=== PATIENT | female | born 1960 | race Caucasian/White ===

== ENCOUNTER 2020-09-15 10:36 | Outpatient (CLI) | payer OTHER | END 2020-09-15 10:37 | disposition home or self-care (01) | LOC: CSHMAMMO 10:36 | PROVIDERS: ATTEND Family Medicine | DX: Z12.31 Encounter for screening mammogram for malignant neoplasm of breast (principal) | CPT/HCPCS: 77063; 77067 ==

== ENCOUNTER 2021-03-31 10:59 | Outpatient (CLI) | payer OTHER | END 2021-03-31 11:00 | disposition home or self-care (01) | LOC: CSHLAB 10:59 | PROVIDERS: ATTEND Obstetrics & Gynecology | DX: Z01.812 Encounter for preprocedural laboratory examination (principal); Z20.822 Contact with and (suspected) exposure to COVID-19; L92.9 Granulomatous disorder of the skin and subcutaneous tissue, unspecified; Z53.9 Procedure and treatment not carried out, unspecified reason | CPT/HCPCS: 80048; 85027; 86850; 86900; 86901; U0003; U0005 ==

== ENCOUNTER 2021-04-05 10:54 | Day surgery (SDC) | payer OTHER ==
[2021-03-31 12:07] LABS: Hemoglobin 9.8 g/dL (12.0-15.5); Mean Corpuscular HGB CONC 33.9 g/dL (32.0-36.0); Mean Corpuscular Hemoglobin 29.1 pg (27.0-33.0); Mean Corpuscular Volume 85.8 fl (81.6-98.3); Mean Platelet Volume 9.7 fl (7.4-10.4); Platelet Count 124 10x3/uL (150-450); RBC Distribution Width 16.7 % (11.5-14.5); Red Blood Cell (RBC) Count 3.37 10x6/uL (3.90-5.03); White Blood Cell (WBC) Count 5.3 10x3/uL (3.5-10.5)
[2021-03-31 12:10] LABS: Anion Gap 14 mmol/L (10-20); BUN (Urea Nitrogen) 32 mg/dL (9.8-20.1); Calc. Creatinine Clearance 0 mL/min (70-130); Calcium 8.8 mg/dL (7.8-10.44); Carbon Dioxide 23 mmol/L (22-29); Chloride 106 mmol/L (98-107); Glucose 152 mg/dL (70-105); Potassium 3.9 mmol/L (3.5-5.1); Sodium 139 mmol/L (136-145)
[2021-04-01 00:36] LABS: SARS-CoV-2 PCR by NAA Not Detected (NotDetected)
[2021-04-03 15:01] VITALS: BMI 20.9
[2021-04-05] MEDS ORDERED: Lidocaine 1% MPF 2 ML VIAL ONE (11:06)
[2021-04-05] MEDS ORDERED: PROPOFOL 20 ML ONE (11:58)
[2021-04-05] MEDS ORDERED: Ferric Subsulfate (ASTRINGYN) 8 GM VIAL ONE (11:59)
[2021-04-05] MEDS ORDERED: Fentanyl 100 MCG/2 ML VIAL ONE (11:59)
[2021-04-05] MEDS ORDERED: Lidocaine 1% PF 5 ML VIAL ONE (11:59)
[2021-04-05] MEDS ORDERED: PHENYLEPHRINE-NS 100 MCG/ML 10 ML SYRINGE ONE (12:14)
== END 2021-04-05 13:30 | disposition home or self-care (01) ==
LOC: CSHSDC 10:54
PROVIDERS: ATTEND Obstetrics & Gynecology
PROC: 0UCGXZZ Extirpation of Matter from Vagina, External Approach (ICD-10-PCS; principal; 2021-04-05)
DX: T19.2XXA Foreign body in vulva and vagina, initial encounter (principal); N95.0 Postmenopausal bleeding; N89.8 Other specified noninflammatory disorders of vagina; I13.0 Hypertensive heart and chronic kidney disease with heart failure and stage 1 through stage 4 chronic kidney disease, or unspecified chronic kidney disease; E11.22 Type 2 diabetes mellitus with diabetic chronic kidney disease; N18.30 Chronic kidney disease, stage 3 unspecified; I50.20 Unspecified systolic (congestive) heart failure; I25.10 Atherosclerotic heart disease of native coronary artery without angina pectoris; F17.210 Nicotine dependence, cigarettes, uncomplicated; I25.5 Ischemic cardiomyopathy; E78.5 Hyperlipidemia, unspecified; Z88.1 Allergy status to other antibiotic agents; Z79.890 Hormone replacement therapy; Z79.82 Long term (current) use of aspirin; Z79.899 Other long term (current) drug therapy; Z95.1 Presence of aortocoronary bypass graft; Z95.5 Presence of coronary angioplasty implant and graft; Z90.710 Acquired absence of both cervix and uterus; Z95.0 Presence of cardiac pacemaker; X58.XXXA Exposure to other specified factors, initial encounter
CPT/HCPCS: 80048; 85027; 86850; 86900; 86901; 88305; J2704; J3010; J3490; U0003; U0005

== ENCOUNTER 2021-12-14 11:51 | Inpatient (IN) | payer OTHER ==
[2021-12-14 12:56] LABS: #Eosinphils 0.1 10x3/uL (0.0-0.5); #Monocytes 0.5 10x3/uL (0.0-1.1); #Neutrophils 3.7 10x3/uL (1.5-8.4); %Basophils 0.4 % (0.0-2.0); %Eosinophils 1.6 % (0.0-6.0); %Lymphocytes 15.7 % (18.0-47.0); %Monocytes 9.8 % (0.0-10.0); %Neutrophils 71.9 % (40.0-75.0); Hemoglobin 7.3 g/dL (12.0-15.5); Mean Corpuscular HGB CONC 30.8 g/dL (32.0-36.0); Mean Corpuscular Hemoglobin 25.5 pg (27.0-33.0); Mean Corpuscular Volume 82.9 fl (81.6-98.3); Mean Platelet Volume 10.2 fl (7.4-10.4); Platelet Count 143 10x3/uL (150-450); RBC Distribution Width 18.5 % (11.5-14.5); Red Blood Cell (RBC) Count 2.86 10x6/uL (3.90-5.03); White Blood Cell (WBC) Count 5.1 10x3/uL (3.5-10.5)
[2021-12-14 13:09] LABS: Bilirubin Neg (Negative); Blood, Urine Negative (Negative); Clarity Clear (Clear); Glucose, Urine (Dipstick) Normal (Negative); Ketone, Urine Negative (Negative); Leukocyte Negative (Negative); Nitrite Negative (Negative); Protein, Urine (Dipstick) 100 mg/dl (Neg-Trace); Urobilinogen Normal mg/dL (Less than 2); pH, Urine 6.5 (5.0-9.0)
[2021-12-14 13:10] LABS: ALT (SGPT) 17 U/L (8-55); AST (SGOT) 13 U/L (5-34); Albumin 3.4 g/dL (3.5-5.0); Alkaline Phosphatase 111 U/L (40-110); Anion Gap 13 mmol/L (10-20); BUN (Urea Nitrogen) 35 mg/dL (9.8-20.1); Bilirubin, Total 0.7 mg/dL (0.2-1.2); Calc. Creatinine Clearance 0 mL/min (70-130); Carbon Dioxide 29 mmol/L (22-29); Chloride 102 mmol/L (98-107); Estimated GFR 18; Globulin 2.6 g/dL (2.4-3.5); Glucose 97 mg/dL (70-105); Lipase 55 U/L (8-78); Potassium 4.2 mmol/L (3.5-5.1); Sodium 140 mmol/L (136-145)
[2021-12-14 13:29] LABS: CKMB 1.2 ng/mL (0-6.6)
[2021-12-14 13:32] LABS: Bacteria/HPF 2+ HPF (None Seen); Mucous/LPF Rare LPF (<2+); RBC/HPF 0-3 HPF (0-3); WBC/HPF 0-3 HPF (0-3)
[2021-12-14] MEDS ORDERED: Aspirin Chewable 81 MG TAB ONE (14:30)
[2021-12-14] MEDS ORDERED: Nitroglycerin 0.4 MG TAB 1 EACH ONE (14:30)
[2021-12-14] MEDS ORDERED: Nitroglycerin 2% Ointment 1 INCH/1 GM Packet ONE (14:31)
[2021-12-14] MEDS ORDERED: Furosemide 40 MG/4 ML VIAL ONE ×2 (14:31)
[2021-12-14 15:53] LABS: Troponin I 0.058 ng/mL (< 0.028)
[2021-12-14 18:56] VITALS: BMI 23.1
[2021-12-14] MEDS ORDERED: Guaifenesin DM 100-10/5 ML UDCUP PO PRN (19:05)
[2021-12-14] MEDS ORDERED: Ondansetron PF 4 MG/2 ML Vial IVP PRN (19:05)
[2021-12-14] MEDS ORDERED: Ondansetron ODT 4 MG TAB PO PRN (19:05)
[2021-12-14] MEDS ORDERED: Acetaminophen 650 MG Suppository PR PRN (19:05)
[2021-12-14 19:14] LABS: Troponin I 0.056 ng/mL (< 0.028)
[2021-12-14] MEDS ORDERED: Insulin Regular 300 UNITS/3 ML VIAL SC PRN (19:18)
[2021-12-14] MEDS ORDERED: Dextrose 50% Abboject 50 ML SYRINGE SLOW IVP PRN (19:18)
[2021-12-14] MEDS ORDERED: Dextrose 5% in Water 1,000 ML IV PRN (19:18)
[2021-12-14] MEDS ORDERED: HumaLOG 300 UNITS/3 ML VIAL SC PRN (19:18)
[2021-12-14] MEDS ORDERED: Bumetanide 1 MG/4 ML VIAL IVP SCH (22:00)
[2021-12-14] MEDS: Heparin 5,000 UNITS/ML VIAL SC SCH (22:33)
[2021-12-15 04:45] LABS: #Eosinphils 0.1 10x3/uL (0.0-0.5); #Monocytes 0.5 10x3/uL (0.0-1.1); %Basophils 0.5 % (0.0-2.0); %Eosinophils 2.2 % (0.0-6.0); %Lymphocytes 14.3 % (18.0-47.0); %Monocytes 9.6 % (0.0-10.0); Anion Gap 13 mmol/L (10-20); BUN (Urea Nitrogen) 37 mg/dL (9.8-20.1); Calc. Creatinine Clearance 22 mL/min (70-130); Calcium 8.7 mg/dL (7.8-10.44); Carbon Dioxide 30 mmol/L (22-29); Chloride 101 mmol/L (98-107); Estimated GFR 18; Glucose 84 mg/dL (70-105); Hemoglobin 7.3 g/dL (12.0-15.5); Magnesium 2.1 mg/dL (1.6-2.6); Mean Corpuscular HGB CONC 30.5 g/dL (32.0-36.0); Mean Corpuscular Hemoglobin 25.5 pg (27.0-33.0); Mean Corpuscular Volume 83.6 fl (81.6-98.3); Mean Platelet Volume 10.9 fl (7.4-10.4); Platelet Count 151 10x3/uL (150-450); Potassium 4.3 mmol/L (3.5-5.1); RBC Distribution Width 18.5 % (11.5-14.5); Red Blood Cell (RBC) Count 2.86 10x6/uL (3.90-5.03); Sodium 140 mmol/L (136-145); White Blood Cell (WBC) Count 5.5 10x3/uL (3.5-10.5)
[2021-12-15] MEDS: Bumetanide 1 MG/4 ML VIAL IVP SCH ×2 (06:52→18:08)
[2021-12-15] MEDS ORDERED: Famotidine/PF 20 mg/2ml Vial SLOW IVP PRN (09:00)
[2021-12-15] MEDS: Aspirin Chewable 81 MG TAB PO SCH (11:33)
[2021-12-15] MEDS: Heparin 5,000 UNITS/ML VIAL SC SCH ×2 (11:33→20:53)
[2021-12-15] MEDS: Famotidine 20 MG TAB PO SCH (11:33)
[2021-12-15] MEDS: hydrALAZINE 25 MG TAB PO SCH ×2 (14:23→20:37)
[2021-12-15] MEDS ORDERED: Isosorbide Dinitrate 20 MG TAB PO SCH (15:00)
[2021-12-15] MEDS: Carvedilol 25 MG TAB PO SCH (20:38)
[2021-12-15] MEDS: Rosuvastatin 20 MG TAB PO SCH (20:38)
[2021-12-15] MEDS: Isosorbide Dinitrate 20 MG TAB PO SCH (20:41)
[2021-12-15] MEDS ORDERED: Melatonin 3 MG TAB PO SCH (23:15)
[2021-12-16] MEDS: Acetaminophen 325 MG TAB PO PRN ×2 (00:15→08:12)
[2021-12-16 05:08] LABS: #Eosinphils 0.1 10x3/uL (0.0-0.5); #Monocytes 0.3 10x3/uL (0.0-1.1); #Neutrophils 3.1 10x3/uL (1.5-8.4); %Basophils 0.5 % (0.0-2.0); %Eosinophils 1.9 % (0.0-6.0); %Lymphocytes 17.4 % (18.0-47.0); %Monocytes 7.9 % (0.0-10.0); %Neutrophils 72.1 % (40.0-75.0); Hemoglobin 6.8 g/dL (12.0-15.5); Mean Corpuscular HGB CONC 30.6 g/dL (32.0-36.0); Mean Corpuscular Hemoglobin 25.5 pg (27.0-33.0); Mean Corpuscular Volume 83.1 fl (81.6-98.3); Mean Platelet Volume 10.7 fl (7.4-10.4); Platelet Count 155 10x3/uL (150-450); RBC Distribution Width 18.3 % (11.5-14.5); Red Blood Cell (RBC) Count 2.67 10x6/uL (3.90-5.03); White Blood Cell (WBC) Count 4.3 10x3/uL (3.5-10.5)
[2021-12-16 05:11] LABS: Anion Gap 14 mmol/L (10-20); BUN (Urea Nitrogen) 33 mg/dL (9.8-20.1); Calc. Creatinine Clearance 21 mL/min (70-130); Calcium 8.4 mg/dL (7.8-10.44); Carbon Dioxide 29 mmol/L (22-29); Chloride 102 mmol/L (98-107); Estimated GFR 18; Glucose 86 mg/dL (70-105); Potassium 4.2 mmol/L (3.5-5.1); Sodium 141 mmol/L (136-145)
[2021-12-16] MEDS: Bumetanide 1 MG/4 ML VIAL IVP SCH ×2 (06:23→18:15)
[2021-12-16] MEDS: hydrALAZINE 25 MG TAB PO SCH ×3 (08:11→20:52)
[2021-12-16] MEDS: Aspirin Chewable 81 MG TAB PO SCH (08:11)
[2021-12-16] MEDS: Carvedilol 25 MG TAB PO SCH ×2 (08:12→20:53)
[2021-12-16] MEDS: Famotidine 20 MG TAB PO SCH (08:12)
[2021-12-16] MEDS: Isosorbide Dinitrate 20 MG TAB PO SCH ×2 (08:17→20:51)
[2021-12-16] MEDS: Heparin 5,000 UNITS/ML VIAL SC SCH ×2 (08:17→20:54)
[2021-12-16] MEDS ORDERED: NIFEdipine XL 30 MG TAB PO SCH (09:00)
[2021-12-16] MEDS ORDERED: Furosemide 20 MG/2 ML VIAL IVP SCH (10:00)
[2021-12-16 10:43] LABS: Iron 21 ug/dL (50-170); Iron Binding Capacity, Total 293 mcg/dL (265-497)
[2021-12-16 11:02] LABS: Ferritin 133.67 ng/mL (10-291)
[2021-12-16] MEDS: Ferrous Sulfate 325 MG TAB PO SCH (18:15)
[2021-12-16] MEDS: Rosuvastatin 20 MG TAB PO SCH (20:51)
[2021-12-16 22:44] LABS: Anion Gap 13 mmol/L (10-20); BUN (Urea Nitrogen) 34 mg/dL (9.8-20.1); Calc. Creatinine Clearance 21 mL/min (70-130); Calcium 8.5 mg/dL (7.8-10.44); Carbon Dioxide 29 mmol/L (22-29); Chloride 101 mmol/L (98-107); Estimated GFR 17; Glucose 133 mg/dL (70-105); Magnesium 2.1 mg/dL (1.6-2.6); Potassium 4.3 mmol/L (3.5-5.1); Sodium 139 mmol/L (136-145)
[2021-12-17 03:57] LABS: #Eosinphils 0.1 10x3/uL (0.0-0.5); #Monocytes 0.4 10x3/uL (0.0-1.1); #Neutrophils 3.4 10x3/uL (1.5-8.4); %Basophils 0.6 % (0.0-2.0); %Eosinophils 1.5 % (0.0-6.0); %Lymphocytes 17.2 % (18.0-47.0); %Monocytes 9.2 % (0.0-10.0); %Neutrophils 71.3 % (40.0-75.0); Hemoglobin 7.9 g/dL (12.0-15.5); Mean Corpuscular HGB CONC 30.6 g/dL (32.0-36.0); Mean Corpuscular Hemoglobin 25.5 pg (27.0-33.0); Mean Corpuscular Volume 83.2 fl (81.6-98.3); Mean Platelet Volume 10.3 fl (7.4-10.4); Platelet Count 154 10x3/uL (150-450); RBC Distribution Width 17.7 % (11.5-14.5); White Blood Cell (WBC) Count 4.8 10x3/uL (3.5-10.5)
[2021-12-17 04:11] LABS: Anion Gap 14 mmol/L (10-20); BUN (Urea Nitrogen) 32 mg/dL (9.8-20.1); Calc. Creatinine Clearance 21 mL/min (70-130); Calcium 8.5 mg/dL (7.8-10.44); Carbon Dioxide 29 mmol/L (22-29); Chloride 101 mmol/L (98-107); Estimated GFR 17; Glucose 101 mg/dL (70-105); Magnesium 2.1 mg/dL (1.6-2.6); Potassium 4.1 mmol/L (3.5-5.1); Sodium 140 mmol/L (136-145)
[2021-12-17] MEDS: Bumetanide 1 MG/4 ML VIAL IVP SCH ×2 (05:14→16:55)
[2021-12-17] MEDS: Heparin 5,000 UNITS/ML VIAL SC SCH ×2 (09:23→20:53)
[2021-12-17] MEDS: Isosorbide Dinitrate 20 MG TAB PO SCH ×2 (09:23→20:54)
[2021-12-17] MEDS: hydrALAZINE 25 MG TAB PO SCH ×3 (09:24→20:53)
[2021-12-17] MEDS: Carvedilol 25 MG TAB PO SCH ×2 (09:25→20:52)
[2021-12-17] MEDS: NIFEdipine XL 60 MG TAB PO SCH (09:26)
[2021-12-17] MEDS: Famotidine 20 MG TAB PO SCH (09:26)
[2021-12-17] MEDS: Aspirin Chewable 81 MG TAB PO SCH (09:26)
[2021-12-17] MEDS: Ferrous Sulfate 325 MG TAB PO SCH ×2 (09:26→16:55)
[2021-12-17] MEDS: Nicotine 21 MG PATCH TD SCH (17:58)
[2021-12-17] MEDS: Rosuvastatin 20 MG TAB PO SCH (20:54)
[2021-12-17] MEDS: Melatonin 3 MG TAB PO PRN (20:59)
[2021-12-18 04:11] LABS: #Eosinphils 0.1 10x3/uL (0.0-0.5); #Monocytes 0.5 10x3/uL (0.0-1.1); #Neutrophils 3.5 10x3/uL (1.5-8.4); %Basophils 0.6 % (0.0-2.0); %Eosinophils 1.3 % (0.0-6.0); %Lymphocytes 14.4 % (18.0-47.0); %Monocytes 9.9 % (0.0-10.0); %Neutrophils 73.4 % (40.0-75.0); Hemoglobin 8.1 g/dL (12.0-15.5); Mean Corpuscular HGB CONC 30.8 g/dL (32.0-36.0); Mean Corpuscular Hemoglobin 25.6 pg (27.0-33.0); Mean Platelet Volume 9.8 fl (7.4-10.4); Platelet Count 159 10x3/uL (150-450); RBC Distribution Width 17.7 % (11.5-14.5); Red Blood Cell (RBC) Count 3.17 10x6/uL (3.90-5.03); White Blood Cell (WBC) Count 4.7 10x3/uL (3.5-10.5)
[2021-12-18 04:16] LABS: Anion Gap 16 mmol/L (10-20); BUN (Urea Nitrogen) 31 mg/dL (9.8-20.1); Calc. Creatinine Clearance 20 mL/min (70-130); Calcium 8.8 mg/dL (7.8-10.44); Carbon Dioxide 26 mmol/L (22-29); Chloride 101 mmol/L (98-107); Estimated GFR 16; Glucose 123 mg/dL (70-105); Magnesium 2.3 mg/dL (1.6-2.6); Potassium 4.4 mmol/L (3.5-5.1); Sodium 139 mmol/L (136-145)
[2021-12-18] MEDS: Bumetanide 1 MG/4 ML VIAL IVP SCH ×2 (05:34→17:11)
[2021-12-18] MEDS: Aspirin Chewable 81 MG TAB PO SCH (10:31)
[2021-12-18] MEDS: Famotidine 20 MG TAB PO SCH (10:31)
[2021-12-18] MEDS: hydrALAZINE 25 MG TAB PO SCH ×3 (10:31→21:17)
[2021-12-18] MEDS: NIFEdipine XL 60 MG TAB PO SCH (10:32)
[2021-12-18] MEDS: Carvedilol 25 MG TAB PO SCH ×2 (10:32→21:18)
[2021-12-18] MEDS: Heparin 5,000 UNITS/ML VIAL SC SCH ×2 (10:33→21:18)
[2021-12-18] MEDS: Isosorbide Dinitrate 20 MG TAB PO SCH ×2 (10:33→21:20)
[2021-12-18] MEDS: Ferrous Sulfate 325 MG TAB PO SCH ×2 (10:33→17:11)
[2021-12-18] MEDS: Nicotine 21 MG PATCH TD SCH (17:23)
[2021-12-18] MEDS: Rosuvastatin 20 MG TAB PO SCH (21:19)
[2021-12-18] MEDS: Melatonin 3 MG TAB PO PRN (21:23)
[2021-12-19 04:52] LABS: #Eosinphils 0.1 10x3/uL (0.0-0.5); #Monocytes 0.6 10x3/uL (0.0-1.1); #Neutrophils 3.3 10x3/uL (1.5-8.4); %Basophils 0.6 % (0.0-2.0); %Eosinophils 1.5 % (0.0-6.0); %Lymphocytes 15.4 % (18.0-47.0); %Monocytes 12.2 % (0.0-10.0); %Neutrophils 69.9 % (40.0-75.0); Hemoglobin 7.9 g/dL (12.0-15.5); Mean Corpuscular HGB CONC 30.7 g/dL (32.0-36.0); Mean Corpuscular Hemoglobin 25.8 pg (27.0-33.0); Mean Platelet Volume 9.9 fl (7.4-10.4); Platelet Count 157 10x3/uL (150-450); RBC Distribution Width 17.9 % (11.5-14.5); Red Blood Cell (RBC) Count 3.06 10x6/uL (3.90-5.03); White Blood Cell (WBC) Count 4.8 10x3/uL (3.5-10.5)
[2021-12-19 05:15] LABS: Anion Gap 14 mmol/L (10-20); BUN (Urea Nitrogen) 29 mg/dL (9.8-20.1); Calc. Creatinine Clearance 20 mL/min (70-130); Calcium 8.7 mg/dL (7.8-10.44); Carbon Dioxide 27 mmol/L (22-29); Chloride 102 mmol/L (98-107); Estimated GFR 16; Glucose 88 mg/dL (70-105); Magnesium 2.4 mg/dL (1.6-2.6); Potassium 4.6 mmol/L (3.5-5.1); Sodium 138 mmol/L (136-145)
[2021-12-19] MEDS: Bumetanide 1 MG/4 ML VIAL IVP SCH ×2 (05:21→16:49)
[2021-12-19] MEDS: Carvedilol 25 MG TAB PO SCH ×2 (09:32→21:38)
[2021-12-19] MEDS: Ferrous Sulfate 325 MG TAB PO SCH ×2 (09:33→16:42)
[2021-12-19] MEDS: Famotidine 20 MG TAB PO SCH (09:34)
[2021-12-19] MEDS: Heparin 5,000 UNITS/ML VIAL SC SCH ×2 (09:34→21:39)
[2021-12-19] MEDS: Aspirin Chewable 81 MG TAB PO SCH (09:34)
[2021-12-19] MEDS: NIFEdipine XL 60 MG TAB PO SCH (09:34)
[2021-12-19] MEDS: hydrALAZINE 25 MG TAB PO SCH ×3 (09:34→21:39)
[2021-12-19] MEDS: Isosorbide Dinitrate 20 MG TAB PO SCH ×2 (09:35→21:39)
[2021-12-19] MEDS ORDERED: NIFEdipine XL 30 MG TAB PO SCH (13:00)
[2021-12-19 14:13] LABS: Hematocrit 25.3 % (34.0-46.6); RBC Folate Test Component 2055 ng/mL (>498)
[2021-12-19] MEDS: Nicotine 21 MG PATCH TD SCH (16:42)
[2021-12-19] MEDS: Rosuvastatin 20 MG TAB PO SCH (21:38)
[2021-12-19] MEDS: Melatonin 3 MG TAB PO PRN (21:39)
[2021-12-20] MEDS: Bumetanide 1 MG/4 ML VIAL IVP SCH (06:14)
[2021-12-20 06:50] LABS: #Eosinphils 0.1 10x3/uL (0.0-0.5); #Monocytes 0.6 10x3/uL (0.0-1.1); #Neutrophils 3.8 10x3/uL (1.5-8.4); %Basophils 0.5 % (0.0-2.0); %Eosinophils 1.5 % (0.0-6.0); %Lymphocytes 17.6 % (18.0-47.0); %Monocytes 10.5 % (0.0-10.0); %Neutrophils 69.5 % (40.0-75.0); Mean Corpuscular HGB CONC 30.5 g/dL (32.0-36.0); Mean Corpuscular Hemoglobin 25.5 pg (27.0-33.0); Mean Corpuscular Volume 83.4 fl (81.6-98.3); Mean Platelet Volume 10.2 fl (7.4-10.4); Platelet Count 171 10x3/uL (150-450); RBC Distribution Width 17.9 % (11.5-14.5); Red Blood Cell (RBC) Count 3.14 10x6/uL (3.90-5.03); White Blood Cell (WBC) Count 5.5 10x3/uL (3.5-10.5)
[2021-12-20 06:54] LABS: Carbon Dioxide 25 mmol/L (22-29); Chloride 103 mmol/L (98-107); Potassium 4.7 mmol/L (3.5-5.1); Sodium 139 mmol/L (136-145)
[2021-12-20 06:56] LABS: Anion Gap 16 mmol/L (10-20); BUN (Urea Nitrogen) 28 mg/dL (9.8-20.1); Calc. Creatinine Clearance 19 mL/min (70-130); Estimated GFR 15; Glucose 101 mg/dL (70-105)
[2021-12-20 06:57] LABS: Calcium 8.7 mg/dL (7.8-10.44)
[2021-12-20] MEDS: Heparin 5,000 UNITS/ML VIAL SC SCH ×2 (08:30→21:11)
[2021-12-20] MEDS: Ferrous Sulfate 325 MG TAB PO SCH ×2 (08:31→17:24)
[2021-12-20] MEDS: NIFEdipine XL 90 MG TAB PO SCH (08:31)
[2021-12-20] MEDS: Aspirin Chewable 81 MG TAB PO SCH (08:31)
[2021-12-20] MEDS: hydrALAZINE 25 MG TAB PO SCH ×3 (08:31→21:09)
[2021-12-20] MEDS: Carvedilol 25 MG TAB PO SCH ×2 (08:31→21:10)
[2021-12-20] MEDS: Famotidine 20 MG TAB PO SCH (08:35)
[2021-12-20] MEDS: Isosorbide Dinitrate 20 MG TAB PO SCH ×2 (08:35→21:10)
[2021-12-20] MEDS: Nicotine 21 MG PATCH TD SCH (17:24)
[2021-12-20] MEDS: Bumetanide 1 MG TAB PO SCH (17:24)
[2021-12-20] MEDS: Rosuvastatin 20 MG TAB PO SCH (21:10)
[2021-12-20] MEDS: Melatonin 3 MG TAB PO PRN (21:51)
[2021-12-21 05:21] LABS: Anion Gap 14 mmol/L (10-20); BUN (Urea Nitrogen) 28 mg/dL (9.8-20.1); Calc. Creatinine Clearance 0 mL/min (70-130); Calcium 8.7 mg/dL (7.8-10.44); Carbon Dioxide 26 mmol/L (22-29); Chloride 104 mmol/L (98-107); Estimated GFR 15; Glucose 78 mg/dL (70-105); Potassium 4.6 mmol/L (3.5-5.1); Sodium 139 mmol/L (136-145)
[2021-12-21] MEDS ORDERED: EPOETIN ALFA-EPBX (ESRD) 4,000 UNIT/ML VIAL SC SCH (09:00)
[2021-12-21] MEDS: Aspirin Chewable 81 MG TAB PO SCH (09:55)
[2021-12-21] MEDS: Famotidine 20 MG TAB PO SCH (09:55)
[2021-12-21] MEDS: hydrALAZINE 25 MG TAB PO SCH ×3 (09:56→20:23)
[2021-12-21] MEDS: NIFEdipine XL 90 MG TAB PO SCH (09:56)
[2021-12-21] MEDS: Carvedilol 25 MG TAB PO SCH ×2 (09:56→20:22)
[2021-12-21] MEDS: Isosorbide Dinitrate 20 MG TAB PO SCH ×2 (09:56→20:23)
[2021-12-21] MEDS: Bumetanide 1 MG TAB PO SCH ×2 (09:56→15:38)
[2021-12-21] MEDS: Heparin 5,000 UNITS/ML VIAL SC SCH ×2 (09:56→20:22)
[2021-12-21] MEDS: Ferrous Sulfate 325 MG TAB PO SCH ×2 (09:56→15:38)
[2021-12-21] MEDS: Albumin 25% 25 GM/100 ML BOT IVPB SCH ×3 (09:57→20:22)
[2021-12-21] MEDS: Acetaminophen 325 MG TAB PO PRN (12:39)
[2021-12-21] MEDS: Nicotine 21 MG PATCH TD SCH (15:39)
[2021-12-21] MEDS: Rosuvastatin 20 MG TAB PO SCH (20:24)
[2021-12-21] MEDS: Melatonin 3 MG TAB PO PRN (22:57)
[2021-12-22] MEDS: Albumin 25% 25 GM/100 ML BOT IVPB SCH (01:28)
[2021-12-22 04:49] LABS: Anion Gap 15 mmol/L (10-20); BUN (Urea Nitrogen) 30 mg/dL (9.8-20.1); Calc. Creatinine Clearance 18 mL/min (70-130); Carbon Dioxide 26 mmol/L (22-29); Chloride 106 mmol/L (98-107); Estimated GFR 15; Glucose 88 mg/dL (70-105); Potassium 4.6 mmol/L (3.5-5.1); Sodium 142 mmol/L (136-145)
[2021-12-22 04:50] LABS: #Eosinphils 0.1 10x3/uL (0.0-0.5); #Monocytes 0.5 10x3/uL (0.0-1.1); #Neutrophils 2.9 10x3/uL (1.5-8.4); %Basophils 0.7 % (0.0-2.0); %Eosinophils 1.4 % (0.0-6.0); %Lymphocytes 17.1 % (18.0-47.0); %Monocytes 11.3 % (0.0-10.0); %Neutrophils 69.3 % (40.0-75.0); Hemoglobin 7.7 g/dL (12.0-15.5); Mean Corpuscular Hemoglobin 25.5 pg (27.0-33.0); Mean Corpuscular Volume 85.1 fl (81.6-98.3); Mean Platelet Volume 10.2 fl (7.4-10.4); Platelet Count 142 10x3/uL (150-450); RBC Distribution Width 17.9 % (11.5-14.5); Red Blood Cell (RBC) Count 3.02 10x6/uL (3.90-5.03); White Blood Cell (WBC) Count 4.2 10x3/uL (3.5-10.5)
[2021-12-22] MEDS ORDERED: Bumetanide 1 MG TAB PO SCH (07:30)
[2021-12-22] MEDS: NIFEdipine XL 90 MG TAB PO SCH (08:19)
[2021-12-22] MEDS: Carvedilol 25 MG TAB PO SCH (08:20)
[2021-12-22] MEDS: hydrALAZINE 25 MG TAB PO SCH (08:21)
[2021-12-22] MEDS: Famotidine 20 MG TAB PO SCH (08:22)
[2021-12-22] MEDS: Aspirin Chewable 81 MG TAB PO SCH (08:22)
[2021-12-22] MEDS: Ferrous Sulfate 325 MG TAB PO SCH (08:22)
[2021-12-22] MEDS: Isosorbide Dinitrate 20 MG TAB PO SCH (08:23)
[2021-12-22] MEDS: Heparin 5,000 UNITS/ML VIAL SC SCH (08:23)
[2021-12-22 10:26] VITALS: BP 140/63; TEMP 98
== END 2021-12-22 11:01 | disposition home health service (06) | DRG 291 ==
LOC: CSHERS 11:51 → CSHTELE 18:43
PROVIDERS: ADMIT Internal Medicine; ATTEND Family Medicine
PROC: 30233N1 Transfusion of Nonautologous Red Blood Cells into Peripheral Vein, Percutaneous Approach (ICD-10-PCS; principal; 2021-12-16)
DX: I13.0 Hypertensive heart and chronic kidney disease with heart failure and stage 1 through stage 4 chronic kidney disease, or unspecified chronic kidney disease (principal); I50.43 Acute on chronic combined systolic (congestive) and diastolic (congestive) heart failure; N18.4 Chronic kidney disease, stage 4 (severe); I82.811 Embolism and thrombosis of superficial veins of right lower extremity; N17.9 Acute kidney failure, unspecified; E78.5 Hyperlipidemia, unspecified; I25.10 Atherosclerotic heart disease of native coronary artery without angina pectoris; F17.210 Nicotine dependence, cigarettes, uncomplicated; R77.8 Other specified abnormalities of plasma proteins; D63.1 Anemia in chronic kidney disease; E11.69 Type 2 diabetes mellitus with other specified complication; I16.0 Hypertensive urgency; Z20.822 Contact with and (suspected) exposure to COVID-19; E78.00 Pure hypercholesterolemia, unspecified; F32.A Depression, unspecified; I25.5 Ischemic cardiomyopathy; E11.22 Type 2 diabetes mellitus with diabetic chronic kidney disease; Z90.49 Acquired absence of other specified parts of digestive tract; Z95.1 Presence of aortocoronary bypass graft; Z95.810 Presence of automatic (implantable) cardiac defibrillator; Z79.899 Other long term (current) drug therapy; Z98.890 Other specified postprocedural states
CPT/HCPCS: 36415; 36416; 36430; 71045; 80048; 80053; 81003; 81015; 82274; 82553; 82607; 82728; 82747; 83540; 83550; 83690; 83735; 83880; 84484; 85025; 85046; 86850; 86900; 86901; 93005; 93306; 93970; 94760; 96374; 97139; J1644; J1815; J1940; J3490; P9016; P9047; Q0162; Q5105; U0003; U0005